=== PATIENT | female | born 1960 | race Caucasian/White ===

== ENCOUNTER 2023-04-03 10:15 | Emergency (ER) | payer BC, SELFPAY ==
--- NOTE | 2023-04-03 10:31 | XR_ITS ---
FINAL REPORT CLINICAL HISTORY: Acute right foot pain after a fall COMPARISON: None FINDINGS: RIGHT FOOT 3 views of the right foot were obtained. There is no acute fracture or dislocation. Visualized joint spaces are normally aligned. Soft tissues are unremarkable. IMPRESSION: No acute bony abnormality. Reviewed, Interpreted and Dictated by Moses Whittaker MD Transcribed by Rachelle Olivarez Authenticated and [facility]
[2023-04-03 10:50] VITALS: BP 148/89; PULSE 93; RESP 18; TEMP 36.8; O2SAT 98; BMI 40.2
[2023-04-03 11:08] VITALS: BP 148/89; PULSE 93; RESP 18; TEMP 36.8; O2SAT 98
--- NOTE | 2023-04-03 11:20 | EXP.UTC ---
Discharge Plan Prescriptions Prescriptions: No Action valsartan-hydrochlorothiazide 160-12.5 mg tablet 1 tab PO DAILY Patient Comments: TAKE 1 TABLET BY MOUTH ONCE DAILY Referrals Follow up/Referrals: Provider,Referral, MD [Primary Care Provider] - See instructions Activity Restrictions/Add. Instructions Additional Instructions/Restrictions: *weight bearing as tolerated *RICE, Rest the extremity, Ice 15-20 minutes 3-4 times daily, Compress- wear the venkat wrap as discussed as much as possible to help reduce swelling and pain, Elevate the extremity when at rest *Venkat wrap is for support and help control swelling, use it except in the shower. Be sure that is not to tight but not to loose either *Elevate when resting? *Ibuprofen 600mg every 6-8 hours as needed for pain an inflammation. If need something more can take Tylenol in between doses of Ibuprofen to help Immediately follow up with your family doctor for new or worsening of symptoms, or no noticeable improvement over the next 3-5 days Clinical Impressions Clinical Impression: Contusion of foot Qualifiers: Encounter type: initial encounter Laterality: right Qualified Code(s): S90.31XA - Contusion of right foot, initial encounter Instructions Patient Instructions: DI for Contusion, Contusion, DI for Foot Sprain Discharge ED Provider: Rose Marie Lopez [facility] [place] HPI General Stated complaint: [id number]/21@home@2300, Rt foot pain Mode of Arrival: Ambulatory Source of Information: Patient Limitations: No Limitations Time Seen by Provider: 04/03/23 11:21 Description of Symptoms (Recalled from Triage Doc. by RN): PATIENT C/O INJURY TO RIGHT FOOT AFTER FALLING DOWN SOME STAIRS Saturday HEENT Symptoms (Recalled from RN notes): No Resp Symptoms (Recalled from RN notes): No Skin Symptoms (Recalled from RN notes): No MS Symptoms (Recalled from RN notes): Yes Functional Status (Recalled from RN notes): WNL History of Present Illness Provider Complaint: Patient states that she was going down the deck stairs on Saturday when she slipped and missed a couple of steps and hurt her right foot States that she thought she may have just bruised it but today it was still hurting and the bruising was worse so she came in to get it checked Related Data Home Medications Medication Instructions Recorded Confirmed valsartan 160 1 tab PO DAILY Hypertension 04/03/23 04/03/23 mg-hydrochlorothiazide 12.5 mg tablet Allergies Allergy/AdvReac Type Severity Reaction Status Date / Time morphine Allergy Verified 04/03/23 11:06 Sulfa (Sulfonamide Allergy Verified 04/03/23 11:06 Antibiotics) Worker's Comp Is this a Worker's Comp case?: No [facility] [place] Disclaimer: The information contained in this section may have been updated after the patient was seen, as this information can be updated by other users. Medical History (Updated 04/03/23 @ 12:54 by Rose Marie Lopez APRN) Hypertension Surgical History (Updated 04/03/23 @ 11:07 by Kathy Madrid RN) History of hysterectomy Social History Smoking Status: Unknown if ever smoked alcohol intake: never current occupational status: employed Travel in the last 8 weeks: None ROS Obtained: Yes All systems reviewed & no additional complaints except as documented and Yes Systems reviewed as appropriate & no additional complaints except as documented Constitutional Constitutional: Reports system reviewed and no additional complaints, except as documented and Reports as per HPI ENT Ears, Nose, Mouth, and Throat: Reports system reviewed and no additional complaints, except as documented and Reports as per HPI Cardiovascular Cardiovascular: Reports system reviewed and no additional complaints, except as documented and Reports as per HPI Respiratory Respiratory: Reports system reviewed and no additional complaints, except as documented and Reports as per HPI Gastrointestinal Gastrointestingal: Repo
== END 2023-04-03 12:52 | disposition home or self-care (01) ==
LOC: UTC 10:22
PROVIDERS: Emergency Provider Nurse Practitioner
DX: S90.31XA Contusion of right foot, initial encounter (principal); I10 Essential (primary) hypertension; W10.8XXA Fall (on) (from) other stairs and steps, initial encounter
CPT/HCPCS: 73630; 99204; 99212; G0463